=== PATIENT | male | born 1960 | race American Indian/Alaskan Native ===

== ENCOUNTER 2016-10-20 12:59 | Emergency (ER) | payer OTHER ==
[2016-10-20 14:21] LABS: Bilirubin,Urine NEG (Negative); Blood,Urine SM (Negative); Ketones,Urine NEG (Negative); Leukocyte Esterase,Urine TR (Negative); Mucus,Urine FEW /HPF; Nitrite,Urine NEG (Negative); Protein,Urine <15 mg/dL mg/dL (Negative); Urobilinogen,Urine < 2.0 mg/dL (<2.0)
--- NOTE | 2016-10-20 15:11 | Ultrasound Report ---
FINAL REPORT PROCEDURE: US TESTICULAR DOPPLER COMP TECHNIQUE: Real-time benitez-scale and color flow Doppler sonography in multiple planes of the scrotum, testicles, and epididymes was performed. Velocity spectral waveform analysis Doppler imaging of the arterial inflow and venous outflow of the testicles was performed with image documentation. CPT 04083 and 01694 HISTORY: RIGHT TESTICULAR PAIN / SWELLING COMPARISON: No prior studies are available for comparison. FINDINGS: Right testis measures 4.2 x 2.4 x 3.4 cm. Left testis measures 4.4 x 2.0 x 3.1 cm. Left epididymal head is normal in size with a tiny cyst. Right epididymis is enlarged. Increased vascularity is seen in the right epididymis consistent with epididymitis. There is an avascular area associated with the epididymal tail measuring 2.4 x 1.7 x 1.0 Cm. This could represent phlegmon or abscess. No evidence of orchitis or torsion is seen. No testicular mass is identified. There is a left-sided varicocele. Small right-sided hydrocele is seen. IMPRESSION: Probable changes of left-sided epididymitis are seen with possible associated phlegmon or abscess associated with the tail, measuring 2.4 x 1.0 x 1.7 cm. No evidence of orchitis is seen. Left-sided varicocele is suspected with small right-sided hydrocele.
[2016-10-20] MEDS ORDERED: NORCO 10/325 PO ONE (17:44)
--- NOTE | 2016-10-20 17:46 | Emergency Department Report ---
ED Male HPI - General Chief complaint: Urogenital-Male Stated complaint: RT TESTICULAR PAIN Time Seen by Provider: 10/20/16 16:49 Source: patient Mode of arrival: Ambulatory Limitations: No Limitations - History of Present Illness Complaint: testicle pain (r) -: Gradual, days(s) (3) Location: right testicle Radiation: none Severity: moderate Quality: aching Consistency: constant Worsens with: none swelling. denies: discharge, mass, rash, urinary retention, blood in urine, dysuria, fever, nausea/vomiting, incontinence - Related Data Sexually active: Yes () Previous Rx's Medication Instructions Recorded Last Taken Type Levofloxacin [Levaquin TAB] 500 mg PO QDAY #10 tablet 10/20/16 Unknown Rx traMADol [Ultram] 50 mg PO Q6HR PRN #15 tablet 10/20/16 Unknown Rx Allergies Allergy/AdvReac Type Severity Reaction Status Date / Time No Known Allergies Allergy Verified 10/20/16 13:05 ED Review of Systems ROS: Stated complaint: RT TESTICULAR PAIN Other details as noted in HPI Comment: Unobtainable due to pts medical conditions Constitutional: no symptoms reported, see HPI. denies: chills, diaphoresis, fever, malaise Eyes: as per HPI. denies: eye pain ENT: as per HPI. denies: ear pain, throat pain Respiratory: no symptoms reported, see HPI. denies: cough, orthopnea Cardiovascular: as per HPI. denies: chest pain, palpitations, dyspnea on exertion, orthopnea Endocrine: no symptoms reported, see HPI. denies: excessive sweating, flushing , intolerance to cold, intolerance to heat Gastrointestinal: as per HPI. denies: abdominal pain, nausea, vomiting, diarrhea, constipation, hematemesis, melena, hematochezia Genitourinary: as per HPI, testicular pain. denies: urgency, dysuria, frequency , hematuria, discharge, testicular mass Musculoskeletal: as per HPI. denies: back pain Skin: as per HPI. denies: rash, lesions Neurological: as per HPI. denies: headache, weakness Psychiatric: as per HPI. denies: anxiety, depression Hematological/Lymphatic: as per HPI. denies: easy bleeding ED Past Medical Hx - Past Medical History Previous Medical History?: Yes Additional medical history: elevated cholesterol - Surgical History Hx Appendectomy: Yes - Family History Family history: no significant - Social History Smoking Status: Never Smoker Substance Use Type: Alcohol - Medications Home Medications: Home Medications Medication Instructions Recorded Confirmed Last Taken Type Levofloxacin [Levaquin TAB] 500 mg PO QDAY #10 tablet 10/20/16 Unknown Rx traMADol [Ultram] 50 mg PO Q6HR PRN #15 tablet 10/20/16 Unknown Rx ED Physical Exam - General Limitations: No Limitations General appearance: alert - Head Head exam: Present: atraumatic - Eye Eye exam: Present: PERRL - ENT ENT exam: Present: normal exam, mucous membranes moist - Neck Neck exam: Present: normal inspection. Absent: tenderness - Respiratory Respiratory exam: Present: normal lung sounds bilaterally. Absent: respiratory distress, wheezes, rales, rhonchi - Cardiovascular Cardiovascular Exam: Present: regular rate, normal rhythm. Absent: bradycardia , tachycardia, irregular rhythm - GI/Abdominal GI/Abdominal exam: Present: soft, normal bowel sounds. Absent: distended, tenderness, guarding, rebound, rigid, diminished bowel sounds - Rectal Rectal exam: Present: normal inspection - exam: Present: testicular tenderness, scrotal swelling. Absent: urethral discharge External exam: Present: other (r testes swollen per pt; tender) - Expanded Exam Expanded Male exam: Absent: phimosis, paraphimosis, penile swelling, lesions, induration, erythema, perineal induration, balanitis, priapism exam: Testicular Tenderness: Right, Testicular Swelling: Right, Cremasteric Reflex Present: Right, Left - Extremities Exam Extremities exam: Present: normal inspection, full ROM. Absent: tenderness - Back Exam Back exam: Present: normal inspection, full ROM. Absent: tenderness, CVA tenderness (R), CVA tenderness (L), muscle spasm, paraspinal tenderness, vertebral tenderness - Neurological Exam Neurological exam: Present: alert, oriented X3, CN II-XII intact, normal gait - Psychiatric Psychiatric exam: Present: normal affect, normal mood, anxious - Skin Skin exam: Present: warm, dry, intact, normal color. Absent: rash ED Course Vital Signs 10/20/16 10/20/16 13:09 19:20 Temperature 98.5 F 99.0 F Pulse Rate 83 81 Respiratory 18 19 Rate Blood Pressure 136/83 Blood Pressure 128/80 [Right] O2 Sat by Pulse 100 99 Oximetry - Reevaluation(s) Reevaluation #1: 10/20/16 19:13 Dr. Ashley asked to see pt- she was original MD on record She is leaving Dr. Ortiz then was given overview of patient [facility] paged [facility] returned page at 1930 She can not confer. [facility] transfer line phoned and awaiting uro return call- [facility] Reevaluation #2: 10/20/16 19:41 Dr. Galeana updated on [facility] call. vss. no fever pain is now 0/10 Will dc w outpt follow up with Dr Arias in 48 hours OR return to ED pt updated verbalizes understanding. ED Medical Decision Making - Lab Data Result diagrams: 10/20/16 17:46 10/20/16 17:46 - Radiology Data Radiology results: report reviewed, image reviewed - Medical Decision Making see note - Differential Diagnosis ro torsion Critical care attestation.: If time is entered above; I have spent that time in minutes in the direct care of this critically ill patient, excluding procedure time. ED Disposition Clinical Impression: Testicular pain, right, Hydrocele in adult Disposition: DC-01 TO HOME OR SELFCARE Is pt being admited?: No Does the pt Need Aspirin: No Condition: Stable Instructions: Testicle Pain (ED) Additional Instructions: FOLLOW UP WITH UROLOGY ON SATURDAY AM DR ARIAS WITH [facility] ORDERED TODAY Referrals: PRIMARY CARE, [Primary Care Provider] - 3-5 Days DUSTIN ARIAS MD [Staff Physician] - 3-5 Days Forms: Work/School Release Form(ED) Time of Disposition: 19:44
[2016-10-20 18:19] LABS: Basophils % (Auto) 0.3 % (0.0-1.8); Eosinophils % (Auto) 0.4 % (0.0-4.3); Hematocrit 43.6 % (35.5-45.6); Hemoglobin 14.5 gm/dl (11.8-15.2); Mean Corpuscular HGB Conc 33 % (32-34); Mean Corpuscular Hemoglobin 30 pg (28-32); Mean Corpuscular Volume 91 fl (84-94); Platelet Count 259 K/mm3 (140-440); White Blood Count 10.2 K/mm3 (4.5-11.0)
[2016-10-20 18:20] LABS: Alanine Aminotransferase 17 units/L (7-56); Albumin 4.6 g/dL (3.9-5); Albumin/Globulin Ratio 1.4 %; Alkaline Phosphatase 73 units/L (35-129); Anion Gap 18 mmol/L; Blood Urea Nitrogen 10 mg/dL (9-20); Carbon Dioxide 26 mmol/L (22-30); Chloride 96.8 mmol/L (98-107); Glucose 106 mg/dL (75-100); Potassium 5.2 mmol/L (3.6-5.0); Sodium 136 mmol/L (137-145)
[2016-10-20 19:21] VITALS: BP 128/80
[2016-10-20] MEDS ORDERED: LEVAQUIN PO ONE (19:27)
[2016-10-20] MEDS ORDERED: NORCO 5/325 PO ONE (19:55)
--- NOTE | 2016-10-20 20:35 | Event Note ---
Date: 10/20/16 Patient is seen and examined by myself. Ultrasound results are reviewed, urinalysis is reviewed. On my physical examination, patient does have right- sided testicular induration, but no obvious fluctuance or obvious cellulitis. He will be covered empirically with Levaquin. Case is discussed with urology [employer] at [place], Dr Barton. It is my pain that the patient does not require emergent transfer for subspecialty consultation at this time, and a trial of outpatient oral antibiotics would be suitable. The patient will be discharged with antibiotics and he is instructed to follow-up in 48-72 hours, with either urology, or return to the ER for repeat physical examination. Vital Signs 10/20/16 10/20/16 13:09 19:20 Temperature 98.5 F 99.0 F Pulse Rate 83 81 Respiratory 18 19 Rate Blood Pressure 136/83 Blood Pressure 128/80 [Right] O2 Sat by Pulse 100 99 Oximetry Lab Results 10/20/16 10/20/16 10/20/16 Range/Units 13:21 14:40 17:46 WBC 10.2 (4.5-11.0) K/mm3 RBC 4.80 (3.65-5.03) M/mm3 Hgb 14.5 (11.8-15.2) gm/dl Hct 43.6 (35.5-45.6) % MCV 91 (84-94) fl MCH 30 (28-32) pg MCHC 33 (32-34) % RDW 13.0 L (13.2-15.2) % Plt Count 259 (140-440) K/mm3 Lymph % (Auto) 9.7 L (13.4-35.0) % [place] % (Auto) 6.8 (0.0-7.3) % Eos % (Auto) 0.4 (0.0-4.3) % Baso % (Auto) 0.3 (0.0-1.8) % Lymph # 1.0 L (1.2-5.4) K/mm3 [place] # 0.7 (0.0-0.8) K/mm3 Eos # 0.0 (0.0-0.4) K/mm3 Baso # 0.0 (0.0-0.1) K/mm3 Seg Neutrophils % 82.8 H (40.0-70.0) % Seg Neutrophils # 8.4 H (1.8-7.7) K/mm3 Sodium (137-145) mmol/L Potassium (3.6-5.0) mmol/L Chloride (98-107) mmol/L Carbon Dioxide (22-30) mmol/L Anion Gap mmol/L BUN (9-20) mg/dL Creatinine (0.8-1.5) mg/dL Estimated GFR ml/min BUN/Creatinine Ratio % Glucose (75-100) mg/dL POC Glucose 92 (70-105) Calcium (8.4-10.2) mg/dL Total Bilirubin (0.1-1.2) mg/dL AST (5-40) units/L ALT (7-56) units/L Alkaline Phosphatase (35-129) units/L Total Protein (6.3-8.2) g/dL Albumin (3.9-5) g/dL Albumin/Globulin Ratio % Urine Color Yellow (Yellow) Urine Turbidity Clear (Clear) Urine pH 6.0 (5.0-7.0) Ur Specific [place] 1.020 (1.003-1.030) Urine Protein <15 mg/dl (Negative) mg/dL Urine Glucose (UA) >=500 (Negative) mg/dL Urine Ketones Neg (Negative) mg/dL Urine Blood Sm (Negative) Urine Nitrite Neg (Negative) Urine Bilirubin Neg (Negative) Urine Urobilinogen < 2.0 (<2.0) mg/dL Ur Leukocyte Esterase Tr (Negative) Urine WBC (Auto) 10.0 H (0.0-6.0) /HPF Urine RBC (Auto) 7.0 (0.0-6.0) /HPF U Epithel Cells (Auto) < 1.0 (0-13.0) /HPF Urine Mucus Few /HPF 10/20/16 Range/Units 17:46 WBC (4.5-11.0) K/mm3 RBC (3.65-5.03) M/mm3 Hgb (11.8-15.2) gm/dl Hct (35.5-45.6) % MCV (84-94) fl MCH (28-32) pg MCHC (32-34) % RDW (13.2-15.2) % Plt Count (140-440) K/mm3 Lymph % (Auto) (13.4-35.0) % [place] % (Auto) (0.0-7.3) % Eos % (Auto) (0.0-4.3) % Baso % (Auto) (0.0-1.8) % Lymph # (1.2-5.4) K/mm3 [place] # (0.0-0.8) K/mm3 Eos # (0.0-0.4) K/mm3 Baso # (0.0-0.1) K/mm3 Seg Neutrophils % (40.0-70.0) % Seg Neutrophils # (1.8-7.7) K/mm3 Sodium 136 L (137-145) mmol/L Potassium 5.2 H (3.6-5.0) mmol/L Chloride 96.8 L (98-107) mmol/L Carbon Dioxide 26 (22-30) mmol/L Anion Gap 18 mmol/L BUN 10 (9-20) mg/dL Creatinine 0.8 (0.8-1.5) mg/dL Estimated GFR > 60 ml/min BUN/Creatinine Ratio 12.50 % Glucose 106 H (75-100) mg/dL POC Glucose (70-105) Calcium 9.0 (8.4-10.2) mg/dL Total Bilirubin 0.40 (0.1-1.2) mg/dL AST 17 (5-40) units/L ALT 17 (7-56) units/L Alkaline Phosphatase 73 (35-129) units/L Total Protein 8.0 (6.3-8.2) g/dL Albumin 4.6 (3.9-5) g/dL Albumin/Globulin Ratio 1.4 % Urine Color (Yellow) Urine Turbidity (Clear) Urine pH (5.0-7.0) Ur Specific [place] (1.003-1.030) Urine Protein (Negative) mg/dL Urine Glucose (UA) (Negative) mg/dL Urine Ketones (Negative) mg/dL Urine Blood (Negative) Urine Nitrite (Negative) Urine Bilirubin (Negative) Urine Urobilinogen (<2.0) mg/dL Ur Leukocyte Esterase (Negative) Urine WBC (Auto) (0.0-6.0) /HPF Urine RBC (Auto) (0.0-6.0) /HPF U Epithel Cells (Auto) (0-13.0) /HPF Urine Mucus /HPF
== END 2016-10-20 20:37 | disposition home or self-care (01) ==
LOC: ED 12:59
DX: N43.3 Hydrocele, unspecified (principal); Z90.49 Acquired absence of other specified parts of digestive tract
CPT/HCPCS: 36415; 80053; 81001; 82962; 85025; 87086; 93975

== ENCOUNTER 2016-12-06 14:09 | Outpatient (CLI) | payer OTHER ==
--- NOTE | 2016-12-06 16:21 | Ultrasound Report ---
Testicular ultrasound: Patient with recent treatment with antibiotics for epididymitis presenting with an increasingly firm right scrotal sac and increased pain. Comparison is made to prior exam on October 20, 2016. There is a large fluid collection lateral to the right testicle which appears to be confined and compressing the testicle medially. On the prior scan there was a small right hydrocele. The testicle is not otherwise remarkable and there is normal appearing blood flow pattern. The epididymis does not appear obviously swollen but may be slightly compressed as well on the medial side of the testicle. The testicle measures approximately 19 x 36 x 44 mm. The left testicle is echogenically unremarkable and measures 20 x 28 x 36 mm. There is also a normal blood flow. The inferior epididymis does appear somewhat enlarged and there is a mild varicocele with Valsalva maneuver. There is a 5 mm cyst in the epididymis head. Impressions: Large, loculated right hydrocele with testicular compression. Small left varicocele.
== END 2016-12-06 14:10 | disposition home or self-care (01) ==
LOC: US 14:09
PROVIDERS: ATTEND Urology
DX: N50.3 Cyst of epididymis (principal); N43.3 Hydrocele, unspecified; I86.1 Scrotal varices; N50.89 Other specified disorders of the male genital organs
CPT/HCPCS: 93975

== ENCOUNTER 2017-01-26 21:38 | Emergency (ER) | payer OTHER ==
[2017-01-27 04:24] LABS: Bilirubin,Urine NEG (Negative); Blood,Urine MOD (Negative); Ketones,Urine NEG (Negative); Leukocyte Esterase,Urine TR (Negative); Mucus,Urine FEW /HPF; Nitrite,Urine NEG (Negative); Protein,Urine <15 mg/dL mg/dL (Negative); Urobilinogen,Urine < 2.0 mg/dL (<2.0)
[2017-01-27 05:52] VITALS: BP 120/81
--- NOTE | 2017-01-27 06:15 | Emergency Department Report ---
Chief Complaint: Urogenital-Male Stated Complaint: ACTIVE BLADDER - HPI History of Present Illness: 56M PMH hx of appendectomy hydrocele, epididymitis p/w c/o increased urinary frequency, some dysuria. Also c/o sensation of restless legs. Denies fevers, chills, nausea, vomiting - ROS Review of Systems: hx of issues - Exam Vital Signs: Vital Signs 01/27/17 01/27/17 03:45 05:51 Temperature 98.1 F 98.0 F Pulse Rate 86 77 Respiratory 20 18 Rate Blood Pressure 128/90 120/81 O2 Sat by Pulse 98 98 Oximetry Physical Exam: s1/s2, lungs clear MSE screening note: Focused history and physical exam performed. Due to findings the following was ordered: ED MSE: renal colic vs prostatitis; resteles leg syndrome 1- UA blood +, will get noncon CT ? RC vs prostatitis ED Disposition for MSE Condition: Stable Referrals: PRIMARY CARE, [Primary Care Provider] - 3-5 Days
--- NOTE | 2017-01-27 07:01 | Cat Scan Report ---
FINAL REPORT EXAM: CT ABDOMEN PELVIS WO CON HISTORY: renal colic+ ? prostate enlargement TECHNIQUE: Routine axial imaging was obtained of the abdomen and pelvis without oral or IV contrast. Sagittal and coronal reconstructions were reviewed. FINDINGS: The lung bases do not show any infiltrates or effusions. The liver, gallbladder, pancreas, spleen, and adrenal glands appear normal. The kidneys show no evidence of stones or hydronephrosis. The bowel loops are normal in caliber and course. The appendix is not seen. In the pelvis the prostate gland is normal in size and contains calcifications. The bladder appears normal. Free fluid is not seen. There is no evidence of adenopathy. The skeletal structures reveal multilevel disc degeneration in the lumbar spine. IMPRESSION: No evidence of renal stones or hydronephrosis. No evidence of prostatic hypertrophy. No acute process in the abdomen and pelvis.
[2017-01-27 07:06] LABS: Hematocrit 46.1 % (35.5-45.6); Hemoglobin 14.6 gm/dl (11.8-15.2); Mean Corpuscular HGB Conc 32 % (32-34); Mean Corpuscular Hemoglobin 29 pg (28-32); Mean Corpuscular Volume 92 fl (84-94); Platelet Count 245 K/mm3 (140-440); Red Cell Distribution Width 13.8 % (13.2-15.2); White Blood Count 5.1 K/mm3 (4.5-11.0)
[2017-01-27 07:08] LABS: Anion Gap 16 mmol/L; BUN/Creatinine Ratio 13; Blood Urea Nitrogen 10 mg/dL (9-20); Calcium 9.6 mg/dL (8.4-10.2); Carbon Dioxide 28 mmol/L (22-30); Chloride 101.4 mmol/L (98-107); Glucose 106 mg/dL (75-100); Sodium 140 mmol/L (137-145)
--- NOTE | 2017-01-27 07:54 | Emergency Department Report ---
ED Dysuria HPI - HPI Chief Complaint: Urogenital-Male Stated Complaint: ACTIVE BLADDER Duration: 3 Days Severity: Mild Symptoms: Dysuria: Yes, Frequency: Yes, Suprapubic Pain: No, Flank Pain: No, Fever: No, Hematuria: No, Abdominal Pain: No, Previous UTI's: Yes ED Review of Systems ROS: Stated complaint: ACTIVE BLADDER Other details as noted in HPI Comment: All other systems reviewed and negative Genitourinary: dysuria, frequency ED Past Medical Hx - Past Medical History Previous Medical History?: Yes Additional medical history: elevated cholesterol, Hydrocele - Surgical History Hx Appendectomy: Yes - Social History Smoking Status: Never Smoker - Medications Home Medications: Home Medications Medication Instructions Recorded Confirmed Last Taken Type Fluconazole [Diflucan TAB] 100 mg PO QDAY #1 tablet 01/27/17 Unknown Rx Sulfamethoxazole/Trimethoprim 1 each PO BID #10 tablet 01/27/17 Unknown Rx [Bactrim Ds Tablet] hydrOXYzine PAMOATE [Vistaril] 25 mg PO QHS PRN #10 capsule 01/27/17 Unknown Rx traMADol [Ultram] 50 mg PO Q6HR PRN #10 tablet 01/27/17 Unknown Rx Dysuria Exam - Exam General: Vital signs noted. No distress. Alert and acting appropriately. Exam: Yes Moist Mucous Membranes, No CVA Tenderness, No Abdominal Tenderness, No Rigidity or Guarding Labs: Lab Results 01/27/17 01/27/17 01/27/17 Range/Units 06:12 06:12 Unknown WBC 5.1 (4.5-11.0) K/mm3 RBC 5.00 (3.65-5.03) M/mm3 Hgb 14.6 (11.8-15.2) gm/dl Hct 46.1 H (35.5-45.6) % MCV 92 (84-94) fl MCH 29 (28-32) pg MCHC 32 (32-34) % RDW 13.8 (13.2-15.2) % Plt Count 245 (140-440) K/mm3 Lymph % (Auto) [place] % (Auto) [place] Eos % (Auto) [place] Baso % (Auto) [place] Lymph # [place] White # [place] Eos # [place] Baso # [place] Seg Neutrophils % [place] Seg Neutrophils # [place] Sodium 140 (137-145) mmol/L Potassium 5.0 (3.6-5.0) mmol/L Chloride 101.4 (98-107) mmol/L Carbon Dioxide 28 (22-30) mmol/L Anion Gap 16 mmol/L BUN 10 (9-20) mg/dL Creatinine 0.8 (0.8-1.5) mg/dL Estimated GFR > 60 ml/min BUN/Creatinine Ratio 13 % Glucose 106 H (75-100) mg/dL Calcium 9.6 (8.4-10.2) mg/dL Urine Color Straw (Yellow) Urine Turbidity Clear (Clear) Urine pH 6.0 (5.0-7.0) Ur Specific [place] 1.013 (1.003-1.030) Urine Protein <15 mg/dl (Negative) mg/dL Urine Glucose (UA) Neg (Negative) mg/dL Urine Ketones Neg (Negative) mg/dL Urine Blood Mod (Negative) Urine Nitrite Neg (Negative) Urine Bilirubin Neg (Negative) Urine Urobilinogen < 2.0 (<2.0) mg/dL Ur Leukocyte Esterase Tr (Negative) Urine WBC (Auto) 3.0 (0.0-6.0) /HPF Urine RBC (Auto) 5.0 (0.0-6.0) /HPF U Epithel Cells (Auto) < 1.0 (0-13.0) /HPF Urine Mucus Few /HPF Urine Yeast (Budding) Few /HPF ED Course Vital Signs 01/27/17 01/27/17 03:45 05:51 Temperature 98.1 F 98.0 F Pulse Rate 86 77 Respiratory 20 18 Rate Blood Pressure 128/90 120/81 O2 Sat by Pulse 98 98 Oximetry - Reevaluation(s) Reevaluation #1: 01/27/17 pt to er w frequency. this is chronic for him he has been here before w same and saw uro today his s/s seem worse labs noted urine noted dc home w rx and dc poc pt is wanting to see a urologist at [place]- I told him we could send the lab results if they fax us a note vss no fever nad no cva tenderness no testicular pain no dc no concern for std ambulatory drove to er vss on dc ED Medical Decision Making - Lab Data Result diagrams: 01/27/17 06:12 01/27/17 06:12 - Medical Decision Making see note - Differential Diagnosis ro uti/ stone Critical care attestation.: If time is entered above; I have spent that time in minutes in the direct care of this critically ill patient, excluding procedure time. ED Disposition Clinical Impression: Hematuria, Dysuria, Restless legs syndrome (RLS) Disposition: DC- TO HOME OR SELFCARE Is pt being admited?: No Does the pt Need Aspirin: No Condition: Stable Instructions: Acute Hematuria (ED), Restless Legs Syndrome (ED) Additional Instructions: follow up with your urologist at [place] let him know you were seen here and that you had labs etc. he can fax us a release and we can send him copies. ct of abd - no pathology labs normal urine- mod blood hydrate with water meds as ordered today follow up with neurology if leg symptoms persists Prescriptions: hydrOXYzine PAMOATE [Vistaril] 25 mg PO QHS PRN #10 capsule PRN Reason: Sleep Fluconazole [Diflucan TAB] 100 mg PO QDAY #1 tablet Sulfamethoxazole/Trimethoprim [Bactrim Ds Tablet] 1 each PO BID #10 tablet traMADol [Ultram] 50 mg PO Q6HR PRN #10 tablet PRN Reason: Pain Referrals: PRIMARY CAREMD [Referring] - 3-5 Days STEVIE BENOIT MD [Staff Physician] - 3-5 Days JUANA HERNANDEZ MD [Staff Physician] - 3-5 Days RICARDO LARA MD [Referring] - 3-5 Days Time of Disposition: 07:58
== END 2017-01-27 08:10 | disposition home or self-care (01) ==
LOC: ED 21:38
DX: R31.9 Hematuria, unspecified (principal); R30.0 Dysuria; G25.81 Restless legs syndrome; E78.00 Pure hypercholesterolemia, unspecified; Z90.49 Acquired absence of other specified parts of digestive tract
CPT/HCPCS: 36415; 74176; 80048; 81001; 85025; 87086